=== PATIENT | female | born 1960 | race Caucasian/White ===

== ENCOUNTER 2018-06-19 04:48 | Emergency (ER) | payer OTHER ==
[2018-06-19 05:08] VITALS: RESP 20; TEMP 96.8
[2018-06-19 05:44] LABS: CARBON DIOXIDE 32.8 mEq/L (21-32); CREATININE 0.87 mg/dl (0.60-1.00); POTASSIUM 3.2 mMol/L (3.5-5.1)
[2018-06-19] MEDS ORDERED: ONDANSETRON 4 MG ODT ONE (05:51)
[2018-06-19] MEDS ORDERED: KETOROLAC TROMETHAMINE 30 MG/ML SOL IM ONE (05:52)
[2018-06-19] MEDS ORDERED: ONDANSETRON HCL 4 MG TAB PO ONE (05:53)
[2018-06-19] MEDS ORDERED: ONDANSETRON 4 MG ODT BU ONE (05:55)
[2018-06-19] MEDS ORDERED: KETOROLAC TROMETHAMINE 30 MG/ML SOL ONE ×2 (05:57→05:59)
[2018-06-19] MEDS ORDERED: APAP/HYDROCODONE 1 EACH TABLET PO ONE (06:18)
[2018-06-19] MEDS ORDERED: APAP/HYDROCODONE 1 EACH TABLET ONE (06:22)
[2018-06-19 06:56] VITALS: BP 114/84; PULSE 76; O2SAT 97
== END 2018-06-19 06:48 | disposition home or self-care (01) ==
LOC: ED 04:48
DX: M25.532 Pain in left wrist (principal); E87.6 Hypokalemia
CPT/HCPCS: 36415; 73110; 80048; 96372; 99283; 99284; J1885; A9270-GY